=== PATIENT | male | born 1980 | race Caucasian/White ===

== ENCOUNTER 2021-01-31 21:21 | Emergency (ER) | payer BC, MEDICAID, OTHER ==
[~2021-01-31] VITALS: Ht 190.5 cm; Wt 77.3 kg
[2021-01-31 21:31] VITALS: BP 136/88
[2021-01-31] MEDS ORDERED: HYDR-3965 PO (22:47)
[2021-01-31] MEDS ORDERED: TETanus/Pertussis (Acell)/Diphther VAC/PF (Tdap-Adult) 0.5ml syringe IMVAC ONE (22:50)
== END 2021-01-31 23:26 | disposition home or self-care (01) ==
LOC: ER 21:21
DX: S81.802A Unspecified open wound, left lower leg, initial encounter (principal); Z79.899 Other long term (current) drug therapy; W45.0XXA Nail entering through skin, initial encounter; Y93.89 Activity, other specified; Y92.89 Other specified places as the place of occurrence of the external cause; Y99.8 Other external cause status
CPT/HCPCS: 73564; 90471; 90715; 99283